=== PATIENT | female | born 1955 | race Caucasian/White ===

== ENCOUNTER 2025-03-14 13:03 | Emergency (ER) | payer MEDICARE, SELFPAY ==
--- NOTE | ~2025-03-14 | CT_ITS ---
EXAMINATION: CT cervical spine wo con DATE: 03/14/2025 14:30 INDICATION: trauma TECHNIQUE: Computed tomography (CT) of the cervical spine was performed without intravenous contrast. Automated exposure control and iterative reconstruction technique were employed. The dose-length pro duct was 231.13 mGy-cm. COMPARISON: None. FINDINGS: Vertebral Body Alignment: Intact. Reversed lordosis centered at C3-4. Craniocervical and atlantoaxial alignment: Moderate degenerative change. Alignment intact. Osseous structures/fracture: No evidence of a lytic or blastic process in the visualized spine. No e vidence of acute fracture. Cervical soft tissues: The paraspinal soft tissues planes are maintained. Biapical pleural scarring w ith calcification on the right. Degenerative changes: Degenerative changes, without severe neural foraminal or central canal narrowin g. IMPRESSION: No acute fracture or traumatic malalignment in the cervical spine. Reviewed, dictated and finalized at location K.
--- NOTE | ~2025-03-14 | CT_ITS ---
EXAMINATION: CT brain wo con DATE: 03/14/2025 14:30 INDICATION: trauma . TECHNIQUE: Computed tomography (CT) of the head was performed without intravenous contrast. The mA wa s adjusted according to patient size. Iterative reconstruction technique was employed. The dose-lengt h product was 605.33 mGy-cm. COMPARISON: None. FINDINGS: No acute intracranial hemorrhage or extra-axial fluid collection. No hydrocephalus, mass, or herniation. No acute ischemic infarct. Unremarkable dural venous sinus attenuation. No acute osseous abnormality. The aerated spaces are clear. Atherosclerotic intracranial calcifications IMPRESSION: No acute intracranial process. Reviewed, dictated and finalized at location K.
[2025-03-14 13:03] VITALS: BP 147/89; PULSE 80; RESP 16; TEMP 36.4; O2SAT 99
--- OUTSIDE RECORDS SUMMARY | 2025-03-14 13:05 | XMS_ITS | Encounter Summary ---
Author Organization [facility] Address [address] [place] [address] Phone Care Team Providers Care Recapper Name Role Phone Radha Clark Primary Care Provider Gold Murphy MD Unavailable Clarence Joseph MD Unavailable [phone] Sunshine Zamora MD Primary Care Provider Luli Correa NP Primary Care Provider [phone] Encounter Details Date Type Department Care Team (Latest Contact Info) Description 04/06/2023 Orders Only [facility] Tete Beyer, RN [address] [facility] [address] [place], [place] [id number] Social History Tobacco Use Types Packs/Day Years Used Date Smoking Tobacco: Never Assessed Comments Unknown Sex and Gender Information Value Date Recorded Sex Assigned at Not on file Legal Sex Female 1:43 AM CURTAIN CUTTER Gender Identity Not on file Sexual Orientation Not on file documented as of this encounter Plan of Treatment Not on file documented as of this encounter Procedures Procedure Name Priority Date/Time Associated Diagnosis Comments PULMONARY - RESULT SCAN 08/18/2023 SCAN - LABS 04/06/2023 documented in this encounter Results * PULMONARY - RESULT SCAN (08/18/2023) Anatomical Region Laterality Modality Other us Provider Scanning Final Result * SCAN - LABS (04/06/2023) us Tete Beyer RN Final Result documented in this encounter Visit Diagnoses Not on filedocumented in this encounter Care Teams Recapper Relationship Specialty [place] [address] [facility] [address] [place] [address] PCP - General Physician Roustabout Supervisor 08/02/23 11/13/23 Sunshine Zamora MD [address] [facility], [address] [address] PCP - General Family Medicine 11/14/23 10/30/24 Luli Correa NP [address] [facility] [address] [place] [address] PCP - General Family Medicine 10/31/24 Gold Murphy MD [address] [facility], [address] [address] Referring Physician Pulmonary Disease 11/14/23 Clarence Joseph MD [address] [facility], [address] [address] Consulting Physician Cardiology 11/14/23 [facility] Gynecology 10/31/24 documented as of this encounter
--- OUTSIDE RECORDS SUMMARY | 2025-03-14 13:05 | XMS_ITS | Continuity of Care Document ---
Author Organization [facility] Address [address] [place] [address] [facility] [address] [place] [address] Phone Care Team Providers Care Racking Machine Operator Name Role Phone Melissa Herman Unavailable Unavailable Advance Directives Directive Yes / No Effective Date File Name No Information Encounters Encounter Description Practice Location Reason(s) For Visit Diagnoses Date Provider Providers Copied on Encounter [facility], [id number] [place] [address] [address], [place], [place], [id number], [place] tel:[phone] [facility] ([facility]) No Information [address] , [address], [place], [address], [place]. tel:[phone] Family History Family Member Type Diagnosis Age At Onset No Information Payers Payer name Insurance type Covered republican ID Authoriza tion(s) No Information Social History Type Description Quantity Date Captured Comments Sex Female Smoking Status No Information Chief Complaint And Reason For Visit No Information Reason For Referral Reason For Referral No Information History Of Present Illness Encounter Date Complaint History Of Prese nt Illness No Information Functional Status Date Functional Assessmen t No Information Instructions Date Instruction Additional Infor mation No Information Assessments Type Assessment Date No Information Patient Care Teams Name Effective Dates (start - stop) Status Members No Information
--- OUTSIDE RECORDS SUMMARY | 2025-03-14 13:05 | XMS_ITS | Clinical Summary ---
Author Organization [facility] Address [facility] [place] [address] Care Team Providers Care Search Engine Optimization Strategist Name Role Phone Radha Clark Primary Care Provider [phone] Allergies No known active allergies Medications aspirin 81 MG chewable tablet Chew 1 tablet (81 mg total) by mouth daily. Active buPROPion XL (WELLBUTRIN XL) 300 MG 24 hr tabletIndication s:Depression, unspecified depression type Take 1 tablet (300 mg total) by mouth daily. Please call for a follow up appointment 90 tablet 4 Active atorvastatin (LIPITOR) 40 MG tabletIndication s:Dyslipidemia take 1 tablet by mouth everyday at bedtime 30 tablet 4 Active Active Problems Problem Noted Date Diagnosed Date Abnormal finding on lung imaging 06/19/2023 Multiple lung nodules 06/19/2023 Pericardial effusion (HHS/HCC) 06/13/2023 PVD (peripheral vascular disease) 06/13/2023 Dyslipidemia 06/13/2023 Immunizations Immunization Administration Dates Next Due Afluria 36 MONTHS+ (Prefille d Syringe IIV4) 2019 Fluzone 6 Months+ Quad (0.5 mL Prefilled Syringe) 05/02/2020 Influenza Adult (Generic) 05/12/2022,,05/02/2020,2018,06/16/2018 AYUSH ([employer]) COVID-19 AD26 VACCINE 0.5 ML IM SUSP 10/22/2020 PFIZER COVID-19 (ORIGINAL FORMULATION, PURPLE CAP) mRNA, LNP-S, PF, 30 MCG/0.3 ML DOSE 06/13/2021 Pneumococcal (Pneumovax 23) 05/12/2022 Shingrix 08/18/2019,2019 Tdap (Generic) 10/09/2019 Tdap (Historical Only-select from magnify glass) 10/09/2019 Family History Medical History Relation Comments Lung Cancer Brother hepatitis Brother Cancer Father Heart Disease Maternal Grandfather Cancer Mother Breast Cancer Neg Hx Relation Status Comments Brother Father Maternal Grandfather Maternal Grandmother Mother Paternal Grandfather Paternal Grandmother Social History Tobacco Use Types Packs/Day Years Used Date Smoking Tobacco: Never Passive Smoke Exposure: Never Smokeless Tobacco: Never Tobacco Cessation:Counseling Given: Not Answered Alcohol Use Standard Drinks/Week Comments Yes 0 (1 standard drink = 0.6 oz pur e alcohol) socially PHQ-2 Answer Date Recorded Patient Health Questionnaire-2 Score 0 04/06/2023 Comments No Sex and Gender Information Value Date Recorded Sex Assigned at Not on file Legal Sex Female 10:13 AM SECOND CRUSHER Gender Identity Not on file Sexual Orientation Not on file Last Filed Vital Signs Vital Sign Reading Time Taken Comments Blood Pressure 128/80 07/20/2023 11:08 AM SECOND CRUSHER Pulse 79 07/20/2023 11:08 AM SECOND CRUSHER Temperature 36.8 C (98.2 F) 06/19/2023 7:46 AM SECOND CRUSHER Respiratory Rate 14 06/19/2023 7:46 AM SECOND CRUSHER Oxygen Saturation 98% 07/20/2023 11:08 AM SECOND CRUSHER Inhaled Oxygen Concentration - - Weight 73 kg (161 lb) 07/20/2023 11:08 AM SECOND CRUSHER Height 165.1 cm (5' 5) 07/20/2023 11:08 AM SECOND CRUSHER Body Mass Index 26.79 07/20/2023 11:08 AM SECOND CRUSHER Plan of Treatment Health Maintenance Due Date Last Done Comments Annual Medicare Wellness Visit 2022 Pneumococcal Vaccine: 50+ Years (2 of 2 - PCV) 05/12/2023 05/12/2022 COVID-19 Vaccine ( season) 2024 07/03/2022, 06/13/2021, 10/22/2020 PHQ-2 (Physician [place]) 08/14/2024 04/06/2023 Mammogram Screening 06/16/2025 06/16/2023, 03/03/2022, 02/24/2021, Additional history exists Colorectal Cancer Screening FIT-DNA (3 Years) 07/14/2025 07/14/2022, 07/14/2022 DTaP, Tdap and Td Vaccines (3 - Td or Tdap) 10/09/2029 10/09/2019, 10/09/2019 RSV Immunization or 60+ Years (1 - 1-dose 75+ series) 2032 Hepatitis C 03/01/2052 Postponed from 1975 (Patient Refused) Zoster Vaccines Completed 08/18/2019, 2019 Dexa Scan (General) Completed 03/03/2022, 0 Meningococcal B Vaccine Aged Out No l onger eligible based on patient's age to complete this topic Meningococcal Vaccine Aged Out No hieu chayo eligible based on patient's age to complete this topic RSV Immunizations Under 20 Months Aged Out No longer eligible based on patient's age to complete this topic Procedures Procedure Name Priority Date/Time Associated Diagnosis Comments MG SCREENING W ASHLEY JACQUELINE DIGI Routine 06/16/2023 3:44 PM CDT Encounter for screening mammogram for malignant neoplasm of breast COLOGUARD (EXACT SCIENCE) Routine 07/14/2022 9:00 AM SECOND CRUSHER Screen for colon cancer BONE DENSITY/DEXA Routine 03/03/2022 12: 35 PM CDT Osteoporosis screening from Last 3 Months or Most Recently Relevant to Health Maintenance Results * MG SCREENING W ASHLEY JACQUELINE DIGI (06/16/2023 3:44 PM CDT) Anatomical Region Laterality Modality Breast Bilateral Mammography 06/16/2023 4:05 PM CDT Narrative 06/16/2023 4:06 PM CDT EXAMINATION: Digital bilateral screening mammogram with 3-D tomosynthesis EXAM DATE/TIME: 06/16/2023 2:57 PM REASON FOR EXAM: breast screen COMPARISON: February 2022, February 2021, September 2019 TECHNIQUE: Digital screening mammography of both breasts was performed in addition to 3-D Tomosynthesis technique. This study was read with the assistance of a computer-aided detection system. TISSUE DENSITY: There are scattered areas of fibroglandular density. FINDINGS: No suspicious masses, malignant appearing calcifications, skin thickening or other abnormalities are present. No significant change from the prior exam. =====IMPRESSION:===== No mammographic findings suggestive of malignancy ASSESSMENT: ACR BI-RADS 2 - BENIGN FINDING(S) Recommendation: 1: Routine Screening Bilateral COMMENTS: Ordered By: RADHA CLARK Interpreted By: John Thompson MD, 06/16/2023 4:[address] MAMMO Final Result * COLOGUARD ([employer] SCIENCE) (07/14/2022 9:00 AM SECOND CRUSHER) COLOGUARD RESULT Negative Negative [employer] (CLIA #:[id number]) Comment: NEGATIVE TEST RESULT. A negative Cologuard result indicates a low likelihood that a colorectal cancer (CRC) or advanced adenoma (adenomatous polyps with more advanced pre-malignant features) is present. The chance that a person with a negative Cologuard test has a colorectal cancer is less than 1 in 1500 (negative predictive value >99.9%) or has an advanced adenoma is less than 5.3% (negative predictive value 94.7%). These data are based on a prospective cross-sectional study of 10,000 individuals at average risk for colorectal cancer who were screened with both Cologuard and colonoscopy. (Rosa Maria Mcconnell al, N Engl J Med 2014;370(14):9349-7548) The normal value (reference range) for this assay is negative. COLOGUARD RE-SCREENING RECOMMENDATION: Periodic colorectal cancer screening is an important part of preventive healthcare for asymptomatic individuals at average risk for colorectal cancer. Following a negative Cologuard result, the [place] Cancer Society and U.S. [facility]-Society Task Force screening guidelines recommend a Cologuard re-screening interval of 3 years. References: [place] Cancer Society Guideline for Colorectal Cancer Screening: https://www.cancer.org/cancer/oydpp-ykeipe-uiyqaj/hoeqkouux-vjrcsvjqa-wpfmmfj/ac s-rec ommendations.html.; Sundeep DK, Maddy CR, Benny ClarkeK, Colorectal Cancer Screening: Recommendations for Physicians and Patients from the U.S. Multi-Society Task Force on Colorectal Cancer Screening , Am J Gastroenterology 2017; 112:1786-9699. TEST DESCRIPTION: Composite algorithmic analysis of stool DNA-biomarkers with hemoglobin immunoassay. Quantitative values of individual biomarkers are not reportable and are not associated with individual biomarker result reference ranges. Cologuard is intended for colorectal cancer screening of adults of either sex, 45 years or older, who are at average-risk for colorectal cancer (CRC). Cologuard has been approved for use by the U.S. FDA. The performance of Cologuard was established in a cross sectional study of average-risk adults aged 50-84. Cologuard performance in patients ages 45 to 49 years was estimated by sub-group analysis of near-age groups. Colonoscopies performed for a positive result may find as the most clinically significant lesion: colorectal cancer [4.0%], advanced adenoma (including sessile serrated polyps greater than or equal to 1cm diameter) [20%] or non- advanced adenoma [31%]; or no colorectal neoplasia [45%]. These estimates are derived from a prospective cross-sectional screening study of 10,000 individuals at average risk for colorectal cancer who were screened with both Cologuard and colonoscopy. (Rosa Maria Mcconnell al, N Engl J Med 2014;370(14):2441-0899.) Cologuard may produce a false negative or false positive result (no colorectal cancer or precancerous polyp present at colonoscopy follow up). A negative Cologuard test result does not guarantee the absence of CRC or advanced adenoma (pre-cancer). The current Cologuard screening interval is every 3 years. ([place] Cancer Society and U.S. Multi-Society Task Force). Cologuard performance data in a 10,000 patient pivotal study using colonoscopy as the reference method can be accessed at the following location: www.[employer]/results. Additional description of the Cologuard test process, warnings and precautions can be found at www.cologCrowdCompassrd.com. STOOL STOOL SPECIMEN / Unknown 07/14/2022 9:00 AM SECOND CRUSHER 07/15/2022 1:03 PM SECOND CRUSHER us Radha CHÁVEZ BODY FLUIDS AND STOOLS ORDER CHRIS Final Result [facility] ([employer] [address]) [address] [place] [place] [address], [employer] (CLIA #:[id number]) [address] [place] [address] [place] [place] [address] * BONE DENSITY/DEXA (03/03/2022 12:35 PM CDT) Anatomical Region Laterality Modality Bone Bone Density 03/03/2022 1:14 PM CDT Narrative 03/03/2022 1:16 PM CDT IMAGING STUDIES: BONE DENSITY/DEXA DATE: 03/03/2022 12:23 PM CLINICAL HISTORY: Postmenopausal. No calcium replacement therapy. 66-year-old female with menopause at age 50. FINDINGS: LUMBAR SPINE L2-L4: BMD: 0.989 g/sq cm T-SCORE: -0.8 WHO CLASSIFICATION: Normal young adult range FRACTURE RISK: Very low LEFT FEMORAL NECK: BMD: 0.690 T-SCORE: -1.4 WHO CLASSIFICATION: Mild osteopenia FRACTURE RISK: Very low COMPARISON STUDY: 10/09/2019. LUMBAR SPINE L2-L4: BMD: 0.928 T-SCORE: -1.4 WHO CLASSIFICATION: Mild osteopenia FRACTURE RISK: Low LEFT FEMORAL NECK: BMD: 0.710 T-SCORE: -1.3 WHO CLASSIFICATION: Mild osteopenia FRACTURE RISK: Very low Recommendation. Instigation of calcium replacement therapy with repeat imaging in 2 years Ordered By: RADHA CLARK Interpreted By: Kev Leonard, 03/03/2022 1:14 PM Procedure Note Gorge Leonard MD - 07/21/2022 IMAGING STUDIES: BONE DENSITY/DEXA DATE: 03/03/2022 12:23 PM CLINICAL HISTORY: Postmenopausal. No calcium replacement therapy.66-year-old female with menopause at age 50. FINDINGS: LUMBAR SPINE L2-L4: BMD: 0.989 g/sq cm T-SCORE: -0.8 WHO CLASSIFICATION: Normal young adult range FRACTURE RISK: Very low LEFT FEMORAL NECK: BMD: 0.690 T-SCORE: -1.4 WHO CLASSIFICATION: Mild osteopenia FRACTURE RISK: Very low COMPARISON STUDY: 10/09/2019. LUMBAR SPINE L2-L4: BMD: 0.928 T-SCORE: -1.4 WHO CLASSIFICATION: Mild osteopenia FRACTURE RISK: Low LEFT FEMORAL NECK: BMD: 0.710 T-SCORE: -1.3 WHO CLASSIFICATION: Mild osteopenia FRACTURE RISK: Very low Recommendation. Instigation of calcium replacement therapy with repeatimaging in 2 years Ordered By: RADHA CLARK Interpreted By: Kev Leonard, 03/03/2022 1:14 PM Radha CHÁVEZ DEXA Final Result from Last 3 Months or Most Recently Relevant to Health Maintenance Insurance MEDICARE [facility] Care Teams Search Engine Optimization Strategist Relationship Specialty [place] [address] [place] [address] PCP - General PHYSICIAN ALUMINUM BOATS ASSEMBLER 10/02/19
--- OUTSIDE RECORDS SUMMARY | 2025-03-14 13:05 | XMS_ITS | Encounter Summary ---
Author Organization [facility] Address [address] [place] [address] Care Team Providers Care Highway Painter Name Role Phone Radha Clark Primary Care Provider [phone] Encounter Details Date Type Department Care Team (Late st Contact Info) Description 10/09/2019 Textura Message [facility] Family & Internal Medicine [facility] [address] [place] [address] [email or web address], [facility] Provider Bone Density Results Social History Tobacco Use Types Packs/Day Years Used Date Smoking Tobacco: Never Smokeless Tobacco: Never Alcohol Use Standard Drinks/Week Comments Yes 0 (1 standard drink = 0.6 oz pur e alcohol) socially PHQ-2 Answer Date Recorded PHQ-2 Score 0 10/02/2019 Comments No Sex and Gender Information Value Date Recorded Sex Assigned at Not on file Legal Sex Female 10:13 AM LEAD INGOT MOLDER Gender Identity Not on file Sexual Orientation Not on file documented as of this encounter Plan of Treatment Not on file documented as of this encounter Visit Diagnoses Not on filedocumented in this encounter Care Teams Highway Painter Relationship Specialty [place] [address] [place] [address] PCP - General PHYSICIAN BEFORE AND AFTER SCHOOL DAYCARE WORKER 10/02/19 documented as of this encounter
--- OUTSIDE RECORDS SUMMARY | 2025-03-14 13:05 | XMS_ITS | Clinical Summary ---
Author Organization [facility] Address [address] [facility] [place] [address] Care Team Providers Care Hoop Rolls Operator Name Role Phone Unavailable Primary Care Provider Unavailabl e Source Comments [facility],non-owned Affiliates and Associated Physician Practices is amultiple site organization consisting of ambulatory clinics and hospital sitesin [place], [place], [place] and [place]. This disclosure is being madepursuant to the Care Everywhere program and may not contain all information available regarding this patient. Last updated 18.[facility] Allergies No known active allergies Medications * Be aware that medications may not be up to date on this document. Alwaysverify current medications with the patient. buPROPion XL 24hr (WELLBUTRIN-XL) 300 MG tablet Take 1 tablet by mouth once daily 06/15/2021 Active Multiple Vitamins-Mineral s (ZINC PO) Take 1 tablet by mouth once daily Active Cyanocobalamin (B-12 PO) Take 1 tablet by mouth once daily Active Cholecalciferol (VITAMIN D-3 PO) Take 1 tablet by mouth once daily Active Active Problems No known active problems Family History Medical History Relation Name Comments Asthma Neg Hx CVA Neg Hx Cancer - Breast Neg Hx Cancer - Other Neg Hx Cancer - Skin, Melanoma Neg Hx Cancer - Skin, Non Melanoma Neg Hx Eczema Neg Hx Hemophilia Neg Hx Psoriasis Neg Hx Social History Tobacco Use Types Packs/Day Years Used Date Smoking Tobacco: Never Smokeless Tobacco: Never Alcohol Use Standard Drinks/Week Comments Yes 0 (1 standard drink = 0.6 oz pur e alcohol) Comments Unknown Sex and Gender Information Value Date Recorded Sex Assigned at Not on file Legal Sex Female 9:56 AM ARCHITECTURAL DESIGN PROFESSOR Gender Identity Not on file Sexual Orientation Not on file Last Filed Vital Signs Vital Sign Reading Time Taken Comments Blood Pressure 160/100 08/03/2021 11:44 AM ARCHITECTURAL DESIGN PROFESSOR Pulse 72 08/03/2021 11:44 AM ARCHITECTURAL DESIGN PROFESSOR Temperature - - Respiratory Rate - - Oxygen Saturation - - Inhaled Oxygen Concentration - - Weight 74.8 kg (165 lb) 08/03/2021 7:39 AM ARCHITECTURAL DESIGN PROFESSOR Height 161.3 cm (5' 3.5) 08/03/2021 7:39 AM ARCHITECTURAL DESIGN PROFESSOR Body Mass Index 28.77 08/03/2021 7:39 AM ARCHITECTURAL DESIGN PROFESSOR Plan of Treatment Health Maintenance Due Date Last Done Comments BONE DENSITY TESTING 1957 COLOGUARD (AGES 45-75) - COLON CA SCREENING 1957 COLON MONITORING 1957 COLONOSCOPY - COLON CA SCREENING 1957 CT COLONOGRAPHY - COLON CA SCREENING 1957 Colorectal Cancer Screening 1957 FIT - COLON CA SCREENING 1957 FLEX SIG - COLON CA SCREENING 1957 LIPID TESTING 1957 MAMMOGRAM 1957 HEPATITIS C SCREENING 04/21/1975 DTAP/TDAP/TD VACCINES (1 - Tdap) 1976 PNEUMOCOCCAL VACCINE 50+ (1 of 1 - PCV) 2007 ZOSTER VACCINE (1 of 2) 2007 COVID-19 VACCINE (2 - season) 2024 10/22/2020 DEPRESSION SCREENING 08/14/2024 INFLUENZA VACCINE (#1) 2025 , 05/02/2020, 2019, Additional history exists Respiratory Syncytial Virus (RSV) Vaccine Pt: or over 60 yrs (1 - 1-dose 75+ series) 2032 HEPATITIS B VACCINE Aged Out No longe r eligible based on patient's age to complete this topic HIB VACCINE Aged Out No longer eligi ble based on patient's age to complete this topic HPV VACCINE Aged Out No longer eligi ble based on patient's age to complete this topic MENINGOCOCCAL (Group B) VACCINE SHARED DECISION-MAKING Aged Out No longer eligible based on patient's age to complete this topic MENINGOCOCCAL GROUPS A/C/Y/W VACCINE Aged Out No longer eligible based on patient's age to complete this topic Insurance [employer]
--- OUTSIDE RECORDS SUMMARY | 2025-03-14 13:05 | XMS_ITS | Encounter Summary ---
Author Organization [facility] Address [address] [place] [address] Care Team Providers Care Wagon Winder Name Role Phone Radha Clark Primary Care Provider [phone] Encounter Details Date Type Department Care Team (Late st Contact Info) Description 05/31/2023 Synter[employer] Message [facility] Family & Internal Medicine [facility] [address] [place] [address] [facility] Provider Referral Department number Social History Tobacco Use Types Packs/Day Years Used Date Smoking Tobacco: Never Passive Smoke Exposure: Never Smokeless Tobacco: Never Alcohol Use Standard Drinks/Week Comments Yes 0 (1 standard drink = 0.6 oz pur e alcohol) socially PHQ-2 Answer Date Recorded Patient Health Questionnaire-2 Score 0 04/06/2023 Comments No Sex and Gender Information Value Date Recorded Sex Assigned at Not on file Legal Sex Female 10:13 AM NUCLEAR MONITORING TECHNICIAN Gender Identity Not on file Sexual Orientation Not on file documented as of this encounter Plan of Treatment Not on file documented as of this encounter Visit Diagnoses Not on filedocumented in this encounter Additional Health Concerns Assessment Noted Time PHQ-9 Depression Total Score: 0 02/02/20 21 1:54 PM CDT documented as of this encounter Care Teams Wagon Winder Relationship Specialty [place] [address] [place] [address] PCP - General PHYSICIAN COMBINE DRIVER 10/02/19 documented as of this encounter
--- OUTSIDE RECORDS SUMMARY | 2025-03-14 13:05 | XMS_ITS | Encounter Summary ---
Author Organization [facility] Healthcare Address [address] [place] [address] Care Team Providers Care Siebel Architect Name Role Phone Gold Murphy MD Unavailable [phone] Clarence Joseph MD Unavailable Luli Correa NP Primary Care Provider [phone] Reason for Visit * Reason Comments Fall Patient here for c/o fall last . States she has bruise on chest, has had persistent headache but denies hitting head. Encounter Details Date Type Department Care Team (Late st Contact Info) Description 03/14/2025 12:45 PM CDT Office Visit [facility] Medical Group Convenient Care at [address] [address] Eileen Moreno NP [address] [place] [address] [address] [place] [address] Fall, initial encounter (Primary Dx); Pressure in head; Nonintractable headache, unspecified chronicity pattern, unspecified headache type Social History Tobacco Use Types Packs/Day Years Used Date Smoking Tobacco: Never Passive Smoke Exposure: Never Smokeless Tobacco: Never AUDIT-C Answer Date Recorded Q1: How often do you have a drink containing alcohol? 2-3 times a week 07/15/2024 Q2: How many drinks containi ng alcohol do you have on a typical day when you are drinking? Patient does not drink Q3: How often do you have si x or more drinks on one occasion? Never 07/15/2024 PHQ-2 Answer Date Recorded PHQ-2 Total Score (If total score is 3 or more points, staff should administer the PHQ-9) 0 10/31/2024 Personal Safety Answer Date Recorded Have you ever been in or are you currently in a harmful physical or emotional relationship or is someone making you feel afraid or unsafe? 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 Gender Identity Not on file Sexual Orientation Not on file documented as of this encounter Last Filed Vital Signs Vital Sign Reading Time Taken Comments Blood Pressure 142/90 03/14/2025 11:47 AM CDT Pulse 66 03/14/2025 11:47 AM CDT Temperature 36.1 C (96.9 F) 03/14/2025 11:47 AM CDT Respiratory Rate 16 03/14/2025 11:47 AM CDT Oxygen Saturation 97% 03/14/2025 11:47 AM CDT Inhaled Oxygen Concentration - - Weight 70.3 kg (155 lb) 03/14/2025 11:47 AM CDT Height 165.1 cm (5' 5) 03/14/2025 11:47 AM CDT Body Mass Index 25.79 03/14/2025 11:47 AM CDT documented in this encounter Plan of Treatment Not on file documented as of this encounter Visit Diagnoses Diagnosis Fall, initial encounter- Primary Nonintractable headache, unspecified chronicity pattern, unspecified headache type documented in this encounter Care Teams Siebel Architect Relationship Specialty Start Date End Date Luli Correa NP [address] [facility] [address] [place] [address] PCP - General Family Medicine 10/31/24 Gold Murphy MD [address] [facility], [address] [place] [address] Referring Physician Pulmonary Disease 11/14/23 Clarence Joseph MD [address] [facility], [address] [place] [address] Consulting Physician Cardiology 11/14/23 [facility] Gynecology 10/31/24 documented as of this encounter
--- OUTSIDE RECORDS SUMMARY | 2025-03-14 13:05 | XMS_ITS | Clinical Summary ---
Author Organization [facility] Address [address] [place] [address] Care Team Providers Care Serging Machine Operator Automatic Name Role Phone Gold Murphy MD Unavailable [phone] Clarence Joseph MD Unavailable [phone] Luli Correa NP Primary Care Provider [phone] Allergies No known active allergies Medications amLODIPine (NORVASC) 5 mg tablet Take 1 tablet (5 mg total) by mouth daily 90 tablet 3 03/26/2024 5 Active atorvastatin (LIPITOR) 40 mg tablet Take 1 tablet (40 mg total) by mouth daily 90 tablet 3 05/27/2024 5 Active buPROPion XL (WELLBUTRIN XL) 300 mg 24 hr tablet Take 1 tablet (300 mg total) by mouth daily 90 tablet 1 08/21/2024 Active SEMAGLUTIDE SUBQ Inject under the skin Active coenzyme Q10 100 mg capsule Take 1 capsule (100 mg total) by mouth daily Active Active Problems Problem Noted Date Diagnosed Date Screen for colon cancer 03/01/2024 FHx: colon cancer 03/01/2024 Atherosclerosis of aorta 11/14/2023 Assessment & Plan (10/31/2024 9:02 AM CDT): Continues Atorvastatin. Pt follows with Cardiology. Assessment & Plan (11/14/2023 6:21 PM CDT): Chronic. Noted on CT chest last year. She is atherosclerosis in both the thoracic and abdominal aorta. Presence of atherosclerosis in the aorta indicates increased risk for cerebrovascular disease as well as peripheral arterial disease. Despite patient have a negative coronary artery calcium score she is still at increased risk of cardiovascular events due to cholesterol pack. Target LDL goal less than 70. Jatinder's high-intensity statin. Continue atorvastatin 40 mg daily Family history of rectal cancer 11/14/2023 Assessment & Plan (10/31/2024 9:03 AM CDT): Pt needs Colonoscopy repeated in 3 months d/t poor bowel prep. Bronchitis 11/14/2023 Assessment & Plan (11/14/2023 6:23 PM CDT): Patient has signs of acute viral bronchitis. Her symptoms been going on for about 2 weeks but seem to be improving last day or 2. Discussed that most bronchitis is viral and so antibiotics are typically not warranted. Given symptoms are starting to improve and lungs are clear on exam we will defer chest x-ray today. If symptoms worsen or develops increased productivity of sputum or hemoptysis and would have low threshold to obtain additional chest imaging especially in setting of her previous borderline lung lesion. Patient was advised of supportive care with [id number] cough and cold medications. We have advised use of [id number]-[id number] Tylenol for pain/fever. If respiratory symptoms are not improving over the next 1-2 weeks then she will let me know. If she does develop 2nd and worsening then evaluation for bacterial pneumonia would also be indicated MARISELA (generalized anxiety disorder) 11/14/2023 Assessment & Plan (10/31/2024 9:03 AM CDT): Stable on Wellbutrin. Assessment & Plan (11/14/2023 6:23 PM CDT): Patient has a history of mild anxiety. She has been well-controlled on bupropion. Brief supportive counseling was provided in office today. She wishes to continue medication at current dose. In the future we may be able to wean down to 150 mg daily. Monitor Encounter for Medicare annual wellness exam 10/12 Assessment & Plan (10/31/2024 8:41 AM CDT): A yearly Medicare Annual Wellness Visit has been performed today. Becky Cruz is up to date on screening tests. She is in need of None- no screening indicated at this time- these have been ordered. She is not up to date on needed preventative vaccinations; She is in need of Influenza, Pneumonia (Prevnar-13 or Pneumovax- 23), and Covid-19 (booster). These have been ordered/arranged unless otherwise indicated. Lung mass 09/05/2023 Assessment & Plan (11/14/2023 6:21 PM CDT): Patient has 1 larger lung mass/nodule in the right upper lobe. This is being monitored. We will need to monitor for improvement in current respiratory symptoms. If respiratory symptoms are not improving may need additional imaging sooner than the six-month recommended on last CT Multiple lung nodules 06/19/2023 Assessment & Plan (10/31/2024 9:03 AM CDT): Following with Pulmonology. Assessment & Plan (11/14/2023 6:20 PM CDT): Chronic. Following with pulmonology. She is multiple small stable nodules that are not concerning. She has had 1 larger nodule that needs short-term follow-up. She has not had any chronic respiratory symptoms though has some mild respiratory symptoms for the last 2 weeks at seem to be starting to improve. We will need to monitor these respiratory symptoms. CT 1 month ago was not concerning for any progression in the lesions. If the respiratory symptoms currently continue to worsen then we may need to get updated imaging to further evaluate Pericardial effusion 06/13/2023 Assessment & Plan (11/14/2023 6:19 PM CDT): Noted last year. Asymptomatic. Continue monitoring with Cardiology. Discussed signs and symptoms to seek urgent evaluation. No signs of decompensation or worsening cardiac issues Dyslipidemia 06/13/2023 Assessment & Plan (10/31/2024 9:02 AM CDT): Continues Atorvastatin, no side effects reported. Updated labs ordered. Assessment & Plan (11/14/2023 6:20 PM CDT): Chronic. Patient has atherosclerosis of the aorta noted on prior CT chest. Discussed that this increases her risk of having significant cardiovascular events in her heart as well as cerebrovascular and peripheral vascular. Given this her LDL goal is now less than 70. She is tolerating the atorvastatin. Discussed risks and benefits and guidelines regards to treatment of cholesterol related disease. Patient is encouraged to continue on atorvastatin 40 mg daily. Abnormal finding on evaluation procedure 017 Overview (03/14/2025): Oth abn and inconclusive findings on dx imaging of breast;Recorded Elsewhere: No Location: [facility] Source: EHR Chronic: N Practice ID: [id number] Billable Time: 10:40:20 AM Atypical squamous cells of u ndetermined significance (ASCUS) on Papanicolaou smear of cervix 01/15/2015 Overview (03/14/2025): Pap Abnormal ASCUS;Practice ID: 0001 Abdominal pain 01/15/2015 Overview (03/14/2025): Abdominal pain, other specified site;Practice ID: 0001 Dysuria 01/15/2015 Overview (03/14/2025): Dysuria;Practice ID: 0001 Urinary tract infectious disease 01/15/2015 Overview (03/14/2025): Urinary tract infection, site not specified;Practice ID: 0001 Benign essential hypertension 07/16/2014 Overview (03/14/2025): Benign essential hypertension;Practice ID: 0001 Microscopic hematuria 07/16/2014 Overview (03/14/2025): HEMATURIA MICROSCOPIC;Practice ID: 0001 Resolved Problems Problem Noted Date Diagnosed Date Resolved Date Abnormal finding on lung imaging 06/19/2023 11/14/2023 PVD (peripheral vascular disease) 06/13/2023 11/14/2023 Encounters Date Type Department Care Team Description 03/14/2025 12:45 PM CDT Office Visit [facility] Medical Group Convenient Care at [address] [address] Eileen Moreno NP Fall, initial encounter (Primary Dx); Pressure in head; Nonintractable headache, unspecified chronicity pattern, unspecified headache type 03/14/2025 Nurse Triage [facility] Medical Group Primary Care at [address] [address] Luli Correa NP from Last 3 Months Immunizations Immunization Administration Dates Next Due Influenza, Quadrivalent, Spl it, Preservative Free, Intramuscular 05/11/2022,05/03/2021,05/02/2020,04/25,06/16/2018 Influenza, Unspecified 05/12/2022,2020,05/02/2020,04/25,06/16/2018 Pneumococcal Polysaccharide PPV23 05/11/2022 Tdap 10/09/2019 ZOSTER Recombinant 08/18/2019,2019 Surgical History Surgery Date Site/Laterality Comments LASIK 2010 COSMETIC SURGERY eye lid lift COLONOSCOPY VAGINAL DELIVERY x3 Medical History Medical History Date Comments Anxiety Pericardial effusion High cholesterol Lung nodule 05/2023 Atherosclerosis of aorta Hypertension Family History Medical History Relation Name Comments Bladder Cancer Father Marcio Armenta Hyperlipidemia Mother Effie Armenta Rectal cancer Mother Effie Armenta in her 80s Breast cancer Neg Hx Relation Name Status Comments Father Marcio Armenta Mother Effie Armenta Social History Tobacco Use Types Packs/Day Years Used Date Smoking Tobacco: Never Passive Smoke Exposure: Never Smokeless Tobacco: Never Tobacco Cessation:Counseling Given: Not Answered AUDIT-C Answer Date Recorded Q1: How often [...] on file 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 Gender Identity Not on file Sexual Orientation Not on file Obstetrics History Last Filed Vital Signs Vital Sign Reading [...] Mass Index 25.79 03/14/2025 11:47 AM CDT Plan of Treatment Health Maintenance Due Date Last Done Comments Hepatitis B Screening 1975 Pneumococcal vaccine 65+ (2 of 2 - PCV) 05/11/2023 05/11/2022 Osteoporosis Screening-Bone Density Scan 03/03/2024 03/03/2022, 03/03/2022 Covid-19 Vaccine (2023-2 5 season) 2024 07/03/2022, 06/13/2021, 10/22/2020 Breast Cancer Screening-Mammogram 06/16/2024 06/16/2023, 06/16/2023, 06/16/2023, Additional history exists Influenza Vaccine (#1) 2025 2, 05/11/2022, 05/03/2021, Additional history exists Depression Screening 10/31/2025 10/31/2024, 11/14/19 24 Fall Risk Assessment 10/31/2025 10/31/2024, 07/15/2024, 11/14/2023 Well Visit 65+ 10/31/2025 10/31/2024 DTaP/Tdap/Td Vaccine (2 - Td or Tdap) 10/09/2029 10/09/2019 Colon Cancer Screening-Colonoscopy 07/15/20342023 Zoster Vaccine Completed 08/18/2019, 2019 Hepatitis C Screening Completed 10/31/2024 Procedures Procedure Name Priority Date/Time Associated Diagnosis Comments HEPATITIS C ANTIBODY Routine 10/31/2024 9:04 AM CDT Encounter for hepatitis C screening test for low risk patient COLONOSCOPY 07/15/2024 8:14 AM PLANNING DIRECTOR HM MAMMOGRAPHY Routine 06/16/2023 3:42 PM CDT HM DEXA SCAN Routine 03/03/2022 3:44 PM CDT from Last 3 Months or Most Recently Relevant to Health Maintenance Results * Hepatitis C antibody Blood (10/31/2024 9:04 AM CDT) Hep C Ab Nonreactive Nonreactive Comment: Interpretive Data Nonreactive: Antibodies to HCV not detected. Does NOT exclude the possibility of recent exposure to HCV. Equivocal: Equivocal for HCV antibodies. Supplemental molecular testing will be automatically performed to determine infection status in accordance with current CDC screening recommendations. Reactive: Positive for HCV antibodies. This may represent current or past HCV infection. Supplemental molecular testing will be automatically performed to determine current infection status in accordance with current CDC screening recommendations. Interpretive data was last revised on 2019. Blood 10/31/2024 9:04 AM CDT 10/31/2024 3:48 PM CDT us Luli Correa NP LAB MICROBIOLOGY - GENERAL ORDER CHRIS Final Result [facility] [address] [facility] Department [place] [address] * Colonoscopy (07/15/2024 8:14 AM PLANNING DIRECTOR) Anatomical Region Laterality Modality Other Narrative Procedure Note Timothy Cai MD - 07/15/2024 8:14 AM CST [facility] GI ENDOSCOPY Patient Name: Becky Cruz Procedure Date: 07/15/2024 8:14 AM Date of : 1955 Admit Type: Outpatient Age: 69 Gender: Female Attending MD: Timothy Cai M.D. Room: [facility] ENDOSCOPY ROOM 06 Note Status: Finalized Procedure: Colonoscopy Indications: Screening for colorectal malignant neoplasm, Family history of colon cancer Referring MD: Providers: Timothy Cai M.D. Medicines: Monitored Anesthesia Care Complications: No immediate complications. Estimated Blood Loss: Estimated blood loss: none. Procedure: Pre-Anesthesia Assessment: - Prior to the procedure, a History and Physicalwas performed, and patient medications and allergieswere reviewed. The risks and benefits of the procedureand the sedation options and risks were discussed withthe patient. All questions were answered and informed consent was obtained. Patient identification and proposed procedure were verified. After reviewingthe risks and benefits, the patient was deemed in satisfactory condition to undergo the procedure.The anesthesia plan was to use monitored anesthesiacare (MAC). Immediately prior to administration of medications, the patient was re-assessed foradequacy to receive sedatives. The heart rate, respiratory rate, oxygen saturations, blood pressure, adequacyof pulmonary ventilation, and response to care were monitored throughout the procedure. The physical status of the patient was re-assessed after the procedure. The benefits, risks and alternatives of theprocedure and sedation were discussed and informed consentwas obtained. All questions were answered. Please referto the signed informed consent document in the medical record. The scope was passed under direct vision.The [id number]-JA097E colonoscope was introduced through theanus and advanced to the cecum, identified byappendiceal orifice and ileocecal valve. The colonoscopy was performed without difficulty. The patient tolerated the procedure well. The quality of the bowel preparation was inadequate. Scope withdrawal timewas 8 minutes. Prep was administered in a split dose. Findings: The perianal and digital rectal examinations were normal. Non-bleeding internal hemorrhoids were found during retroflexion. The hemorrhoids were small. A moderate amount of stool was found in the entire colon, interfering with visualization. Impression: - Preparation of the colon was inadequate. - Non-bleeding internal hemorrhoids. - Stool in the entire examined colon. - No specimens collected. Recommendation: - Patient has a contact number available for emergencies. The signs and symptoms of potential delayed complications were discussed with thepatient. Return to normal activities tomorrow. Written discharge instructions were provided to thepatient. - High fiber diet. - Continue present medications. - Repeat colonoscopy at next available appointment (within 3 months) because the bowel preparation was poor. Timothy Cai M.D. Timothy Cai M.D. 07/15/2024 8:41:09 AM . Number of Addenda: 0 Note Initiated On: 07/15/2024 8:14 AM Recognized by the [employer] for promoting quality in endoscopy Timothy Cai MD ENDOSCOPY PROCEDURES Final Resul t * HM MAMMOGRAPHY (06/16/2023 3:42 PM CDT) Historical Provider HEALTH MAINTENANCE Final Result * DEXA SCAN (03/03/2022 3:44 PM CDT) Historical Provider HEALTH MAINTENANCE Final Result from Last 3 Months or Most Recently Relevant to Health Maintenance [place] [address] MEDICARE [place] Member Subscriber Plan / Payer (Ef fective 2022-Present) Name:Becky Cruz Relation to Subscriber:Self Name:Becky Cruz Payer ID:[id number] Group ID:Not on file Type:icomply Address: [address] [facility] [place] [address] MEDICARE [place] Member Subscriber Plan / Payer (Ef fective 2022-Present) Name:Becky Cruz Relation to Subscriber:Self Name:Becky Cruz Payer ID:[id number] Group ID:Not on file Type:COMMERCIAL Address: [address] [facility] [place] [facility] [place] [address] Care Teams Serging Machine Operator Automatic Relationship Specialty Start Date End Date Luli Correa NP [address] [facility] [address] [place] [address] PCP - General Family Medicine 10/31/24 Gold Murphy MD [address] [facility] [address] DIV IM PULMONARY AND CCM, [address] [address] Referring Physician Pulmonary Disease 11/14/23 Clarence Joseph MD [address] [facility] [address] DIV IM PULMONARY AND CCM, [address] [address] Consulting Physician Cardiology 11/14/23 [facility] Gynecology 10/31/24
--- OUTSIDE RECORDS SUMMARY | 2025-03-14 13:05 | XMS_ITS | Encounter Summary ---
Author Organization [facility] Healthcare Address [address] [place] [address] Care Team Providers Care Mobile Designer Name Role Phone Gold Murphy MD Unavailable [phone] Clarence Joseph MD Unavailable [phone] Luli Correa NP Primary Care Provider [phone] Reason for Visit * Reason Onset Date Comments Headache 03/14/2025 Encounter Details Date Type Department Care Team (Late st Contact Info) Description 03/14/2025 Nurse Triage [facility] Medical Group Primary Care at [address] [address] Luli Correa NP [address] [place] [address] Social History Tobacco Use Types Packs/Day Years [...] on file 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 Some abrasions and felt a little rattled. Pt did not hit her head. Did not injure neck, no pain. Unsure if she pulled something catching herself. Headache is pretty constant. Pain today 01/21. Has been taking ibuprofen and it does help a little. No fever, stiff neck, eye pain, weakness or numbness. Advised she be evaluated. No office appts available. Advised CC or UC visit. Pt states she lives close to the in [place] and will do a walk in today. No appts available to schedule until this evening. Home care reviewed. Advised pt to call back if symptoms worsen or with any other concerns/questions. Pt verbalized understanding. Disposition See Today in Office Reason for Disposition Patient wants to be seen Protocols Used [id number] * Telephone Encounter - Candice Castle RN - 03/14/2025 10:57 AM CDT Regarding: headache ----- Message from Jennifer Barnes sent at 03/14/2025 9:17 AM CDT ----- Symptom Based Call Chief Complaint(s): headache Duration: week ago What type of symptom(s) is the patient experiencing? Non-Emergent. Is this a new or reoccurring symptom(s)? New What have you tried to help your symptom(s)? Nothing Why was appointment not scheduled? Appointment availability did not meet the patient's need. Additional Comments: Patient said she tripped over her dog last off her raised patio. She said she did not hurt anything nor did she hit her head however, she has had a headache since then. She is somewhat concerned that maybe she pulled something or caused something. Please advise and thank you so much. Does message need to be routed? Yes-Action Needed documented in this encounter Plan of Treatment Not on file documented as of this encounter Visit Diagnoses Not on filedocumented in this encounter Care Teams Mobile Designer Relationship Specialty Start Date End Date Luli Correa NP [address] [place] [address] PCP - General Family Medicine 10/31/24 Gold Murphy MD [address] [facility] [address] DIV IM PULMONARY AND CCM, [address] [place] [address] Referring Physician Pulmonary Disease 11/14/23 Clarence Joseph MD [address] [facility] [address] DIV IM PULMONARY AND CCM, [address] [address] Consulting Physician Cardiology 11/14/23 [facility] [place] Gynecology 10/31/24 documented as of this encounter
--- OUTSIDE RECORDS SUMMARY | 2025-03-14 13:05 | XMS_ITS | Referral Summary ---
Author Organization [facility] Address [address] [place] [address] Care Team Providers Care Sausage Meat Trimmer Name Role Phone Gold Murphy MD Unavailable Clarence Joseph MD Unavailable [phone] Luli Correa NP Primary Care Provider [phone] Encounters Date Type Department Care Team Description 03/14/2025 12:45 PM CDT Office Visit [facility] at [address] [address] Eileen Moreno NP Fall, initial encounter (Primary Dx); Pressure in head; Nonintractable headache, unspecified chronicity pattern, unspecified headache type 03/14/2025 Nurse Triage [facility] Primary Care at [address] [address] Luli Correa NP from Last 3 Months Allergies No known active allergies Medications amLODIPine [...] Patient was advised of supportive care with tgpc-lit-awcpzzn cough and cold medications. We have advised use of hhja-wax-jjyauye Tylenol for pain/fever. If respiratory symptoms are [...] dx imaging of breast;Recorded Elsewhere: No Location: [facility] Source: EHR Chronic: N Practice ID: [id number] [...] 11/14/2023 PVD (peripheral vascular disease) 06/13/2023 11/14/2023 Immunizations Immunization Administration Dates Next Due Influenza, Quadrivalent, Spl it, Preservative Free, Intramuscular 05/11/2022,05/03/2021,05/02/2020,04/25,06/16/2018 Influenza, Unspecified 05/12/2022,2020,05/02/2020,04/25,06/16/2018 Pneumococcal Polysaccharide PPV23 05/11/2022 Tdap 10/09/2019 ZOSTER Recombinant 08/18/2019,2019 Social History Tobacco Use Types Packs/Day Years [...] on file Legal Sex Female 1:43 AM MINING MANAGER Gender Identity Not on file Sexual Orientation [...] 03/14/2025 11:47 AM CDT Plan of Treatment Not on file Procedures Procedure Name Priority Date/Time Associated Diagnosis Comments HEPATITIS C ANTIBODY Routine 10/31/2024 9:04 AM CDT Encounter for hepatitis C screening test for low risk patient COLONOSCOPY 07/15/2024 8:14 AM MINING MANAGER HM MAMMOGRAPHY Routine 06/16/2023 3:42 PM CDT [...] MICROBIOLOGY - GENERAL ORDER CHRIS Final Result [facility] JEB [id number] [address] Department [place] [address] * Colonoscopy (07/15/2024 8:14 AM MINING MANAGER) Anatomical Region Laterality Modality Other Narrative Procedure Note Timothy Cai MD - 07/15/2024 8:14 AM CST [facility] GI ENDOSCOPY Patient Name: Becky Cruz Procedure Date: 07/15/2024 8:14 AM Date of : 1955 Admit Type: Outpatient Age: 69 Gender: Female Attending MD: Timothy Cai M.D. Room: [facility] ENDOSCOPY ROOM 06 Note Status: Finalized Procedure: [...] The scope was passed under direct vision.The [id number]-[id number] colonoscope was introduced through theanus and advanced [...] On: 07/15/2024 8:14 AM Recognized by the [place] [employer] Gastrointestinal Endoscopy for promoting quality in endoscopy Timothy Cai MD ENDOSCOPY PROCEDURES Final Resul t * HM MAMMOGRAPHY (06/16/2023 3:42 PM CDT) Historical Provider HEALTH MAINTENANCE Final Result * DEXA SCAN (03/03/2022 3:44 PM CDT) us Historical Provider HEALTH MAINTENANCE Final Result from Last 3 Months or Most Recently Relevant to Health Maintenance Insurance MEDICARE [facility] MEDICARE [facility] Care Teams Sausage Meat Trimmer Relationship Specialty Start Date End Date Luli Correa NP [address] [facility] [address] [place] [address] PCP - General Family Medicine 10/31/24 Gold Murphy MD [address] DIV IM PULMONARY AND CCM, [address] [address] Referring Physician Pulmonary Disease 11/14/23 Clarence Joseph MD [address] DIV IM PULMONARY AND CCM, [address] [address] Consulting Physician Cardiology 11/14/23 [facility] Gynecology 10/31/24
--- OUTSIDE RECORDS SUMMARY | 2025-03-14 13:05 | XMS_ITS | Encounter Summary ---
Author Organization [facility] Address [address] [place] [address] Care Team Providers Care Cathode Washer Name Role Phone Gold Murphy MD Unavailable [phone] Clarence Joseph MD Unavailable [phone] Sunshine Zamora MD Primary Care Provider Luli Correa NP Primary Care Provider Encounter Details Date Type Department Care Team (Late st Contact Info) Description 05/27/2024 Telephone [facility] Primary Care at [address] [address] Sunshine Zamora MD [address] [place] [address] Social History Tobacco Use Types Packs/Day Years Used Date Smoking Tobacco: Never Smokeless Tobacco: Never PHQ-2 Answer Date Recorded PHQ-2 Total Score (If total score is 3 or more points, staff should administer the PHQ-9) 0 11/14/2023 Comments No Sex and Gender Information Value Date Recorded Sex Assigned at Not on file 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 Gender Identity Not on file Sexual Orientation Not on file documented as of this encounter Plan of Treatment Not on file documented as of this encounter Visit Diagnoses Not on filedocumented in this encounter Care Teams Cathode Washer Relationship Specialty Start Date End Date Sunshine Zamora MD [address] [facility] [address] DIV IM PULMONARY AND CCM, [address] [place] [address] PCP - General Family Medicine 11/14/23 10/30/24 Luli Correa NP [address] [address] PCP - General Family Medicine 10/31/24 Gold Murphy MD [address] DIV IM PULMONARY AND CCM, [address] [address] Referring Physician Pulmonary Disease 11/14/23 Clarence Joseph MD [address] [facility] [address] DIV IM PULMONARY AND CCM, [address] [address] Consulting Physician Cardiology 11/14/23 [facility] Gynecology 10/31/24 documented as of this encounter
--- OUTSIDE RECORDS SUMMARY | 2025-03-14 13:05 | XMS_ITS | Encounter Summary ---
Author Organization [facility] Address [address] [place] [address] Phone Care Team Providers Care Twill Cutter Name Role Phone Radha Clark Primary Care Provider Gold Murphy MD Unavailable [phone] Clarence Joseph MD Unavailable [phone] Sunshine Zamora MD Primary Care Provider Luli Correa NP Primary Care Provider [phone] Encounter Details Date Type Department Care Team (Latest Contact Info) Description 06/30/2023 Orders Only [facility] Tete Beyer, BIANCA [address] [facility] [address] [place] [address] Social History Tobacco Use Types Packs/Day Years Used Date Smoking Tobacco: Never Assessed Comments Unknown Sex and Gender Information Value Date Recorded Sex Assigned at Not on file 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 Gender Identity Not on file Sexual Orientation Not on file documented as of this encounter Plan of Treatment Not on file documented as of this encounter Procedures Procedure Name Priority Date/Time Associated Diagnosis Comments CARDIOLOGY DOCUMENT SCAN 06/30/2023 documented in this encounter Results * Cardiology Document Scan (06/30/2023) Anatomical Region Laterality Modality Other us Tete Beyer RN [facility] P ROCEDURES Final Result documented in this encounter Visit Diagnoses Not on filedocumented in this encounter Care Teams Twill Cutter Relationship Specialty [place] [address] [address] [facility] [address] [place] [address] PCP - General Physician Strategy Execution Consultant 08/02/23 11/13/23 Sunshine Zamora MD [address] DIV IM PULMONARY AND CCM, [facility] [address] [place] [address] PCP - General Family Medicine 11/14/23 10/30/24 Luli Correa NP [address] [facility] [address] [place] [address] PCP - General Family Medicine 10/31/24 Gold Murphy MD [address] DIV IM PULMONARY AND CCM, [address] [address] Referring Physician Pulmonary Disease 11/14/23 Clarence Joseph MD [address] DIV IM PULMONARY AND CCM, [facility] [address] [place] [address] Consulting Physician Cardiology 11/14/23 [facility] Gynecology 10/31/24 documented as of this encounter
[2025-03-14 13:10] VITALS: BP 159/91; PULSE 85; RESP 18; TEMP 36.7; O2SAT 100
--- OUTSIDE RECORDS SUMMARY | 2025-03-14 14:13 | XMS_ITS | Referral Summary ---
Author Organization [facility] Address [address] [place] [address] Care Team Providers Care Veterinary Laboratory Diagnostician Name Role Phone Gold Murphy MD Unavailable [phone] Clarence Joseph MD Unavailable [phone] Luli Correa NP Primary Care Provider [phone] Encounters Date Type Department Care Team Description 03/14/2025 12:45 PM CDT Office Visit [facility] at [address] [address] Eileen Moreno NP Fall, initial encounter (Primary Dx); Pressure in head; Nonintractable headache, unspecified chronicity pattern, unspecified headache type 03/14/2025 Nurse Triage [facility] Primary Care at [address] [address] Luli Correa NP from Last [...] Patient was advised of supportive care with lftg-viu-quybfza cough and cold medications. We have advised use of eayh-wbq-equenaq Tylenol for pain/fever. 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 ASSISTANT THERAPY AIDE Gender Identity Not on file Sexual Orientation [...] low risk patient COLONOSCOPY 07/15/2024 8:14 AM ASSISTANT THERAPY AIDE HM MAMMOGRAPHY Routine 06/16/2023 3:42 PM CDT [...] GENERAL ORDER CHRIS Final Result [facility] JEB [address] [address] Department [place] [address] * Colonoscopy (07/15/2024 8:14 AM ASSISTANT THERAPY AIDE) Anatomical Region Laterality Modality Other Narrative Procedure Note Timothy Cai MD - 07/15/2024 8:14 AM CST [facility] GI ENDOSCOPY Patient Name: Becky Cruz Procedure Date: 07/15/2024 8:14 AM Date of : 1955 Admit Type: Outpatient Age: 69 Gender: Female Attending MD: Timothy Cai M.D. Room: [facility] ENDOSCOPY ROOM 06 Note Status: Finalized Procedure: [...] The scope was passed under direct vision.The [id number]-[id number] colonoscope was introduced through theanus and advanced [...] On: 07/15/2024 8:14 AM Recognized by the [place] Society for Gastrointestinal Endoscopy for promoting quality in endoscopy Timothy Cai MD ENDOSCOPY PROCEDURES Final Resul t * HM MAMMOGRAPHY (06/16/2023 3:42 PM CDT) Historical Provider HEALTH MAINTENANCE Final Result * DEXA SCAN (03/03/2022 3:44 PM CDT) us Historical Provider HEALTH MAINTENANCE Final Result from Last 3 Months or Most Recently Relevant to Health Maintenance Insurance MEDICARE [facility] MEDICARE [facility] Care Teams Veterinary Laboratory Diagnostician Relationship Specialty Start Date End Date Luli Correa NP [address] [facility] [address] [place] [address] PCP - General Family Medicine 10/31/24 Gold Murphy MD [address] DIV IM PULMONARY AND CCM, [address] [address] Referring Physician Pulmonary Disease 11/14/23 Clarence Joseph MD [address] DIV IM PULMONARY AND CCM, [address] [address] Consulting Physician Cardiology 11/14/23 [facility] Gynecology 10/31/24
--- OUTSIDE RECORDS SUMMARY | 2025-03-14 14:13 | XMS_ITS | Clinical Summary ---
Author Organization [facility] Address [address] [place] [address] Care Team Providers Care Fruit Thinner Machine Operator Name Role Phone Unavailable Primary Care Provider Unavailabl e Source Comments [facility],non-owned Affiliates and Associated Physician Practices is amultiple site organization consisting of ambulatory clinics and hospital sitesin [place], [place], [place] and [place]. This disclosure is being madepursuant to the Care Everywhere program and may not contain all information available regarding this patient. Last updated 18.[facility] Allergies No known active allergies Medications * [...] on file Legal Sex Female 9:56 AM OPERATIONS ASSOCIATE Gender Identity Not on file Sexual Orientation Not on file Last Filed Vital Signs Vital Sign Reading Time Taken Comments Blood Pressure 160/100 08/03/2021 11:44 AM OPERATIONS ASSOCIATE Pulse 72 08/03/2021 11:44 AM OPERATIONS ASSOCIATE Temperature - - Respiratory Rate - - Oxygen Saturation - - Inhaled Oxygen Concentration - - Weight 74.8 kg (165 lb) 08/03/2021 7:39 AM OPERATIONS ASSOCIATE Height 161.3 cm (5' 3.5) 08/03/2021 7:39 AM OPERATIONS ASSOCIATE Body Mass Index 28.77 08/03/2021 7:39 AM OPERATIONS ASSOCIATE Plan of Treatment Health Maintenance Due Date [...]
--- OUTSIDE RECORDS SUMMARY | 2025-03-14 14:13 | XMS_ITS | Clinical Summary ---
Author Organization [facility] Address [facility] access hospital[address] [place] [address] Care Team Providers Care Bilingual Teacher Name Role Phone Radha Clark Primary Care Provider [phone] Allergies No known active allergies Medications aspirin [...] on file Legal Sex Female 10:13 AM CHIN STRAP MAKER Gender Identity Not on file Sexual Orientation Not on file Last Filed Vital Signs Vital Sign Reading Time Taken Comments Blood Pressure 128/80 07/20/2023 11:08 AM CHIN STRAP MAKER Pulse 79 07/20/2023 11:08 AM CHIN STRAP MAKER Temperature 36.8 C (98.2 F) 06/19/2023 7:46 AM CHIN STRAP MAKER Respiratory Rate 14 06/19/2023 7:46 AM CHIN STRAP MAKER Oxygen Saturation 98% 07/20/2023 11:08 AM CHIN STRAP MAKER Inhaled Oxygen Concentration - - Weight 73 kg (161 lb) 07/20/2023 11:08 AM CHIN STRAP MAKER Height 165.1 cm (5' 5) 07/20/2023 11:08 AM CHIN STRAP MAKER Body Mass Index 26.79 07/20/2023 11:08 AM CHIN STRAP MAKER Plan of Treatment Health Maintenance Due Date Last Done Comments Annual Medicare Wellness Visit 2022 Pneumococcal Vaccine: 50+ Years (2 of 2 - PCV) 05/12/2023 05/12/2022 COVID-19 Vaccine ( season) 2024 07/03/2022, 06/13/2021, 10/22/2020 PHQ-2 (Physician Telida) 08/14/2024 04/06/2023 Mammogram Screening 06/16/2025 06/16/2023, 03/03/2022, [...] COLOGUARD (EXACT SCIENCE) Routine 07/14/2022 9:00 AM CHIN STRAP MAKER Screen for colon cancer BONE DENSITY/DEXA Routine [...] Thompson MD, 06/16/2023 4:05 PM Radha Clark [place] MAMMO Final Result * COLOGUARD (Tamr SCIENCE) (07/14/2022 9:00 AM CHIN STRAP MAKER) COLOGUARD RESULT Negative Negative [employer] (CLIA #:[id number]) Comment: NEGATIVE TEST RESULT. A negative Cologuard [...] Maria Mcconnell al, N Engl J Med 2014;370(14):9925-2037) The normal value (reference range) for this assay is negative. COLOGUARD RE-SCREENING RECOMMENDATION: Periodic colorectal cancer screening is an important part of preventive healthcare for asymptomatic individuals at average risk for colorectal cancer. Following a negative Cologuard result, the [place] Cancer Society and U.S. [facility]-Society Task Force screening guidelines recommend a Cologuard re-screening interval of 3 years. References: [place] [employer] Society Guideline for Colorectal Cancer Screening: https://www.cancer.org/cancer/xaswy-hlzvcv-aiaryq/xfwpxogty-hadvavnrz-jhojzje/ac s-rec ommendations.html.; Sundeep DK, Maddy CR, Benny ClarkeK, Colorectal Cancer Screening: Recommendations for Physicians and Patients from the U.S. Multi-Society Task Force on Colorectal Cancer Screening , Am J Gastroenterology 2017; 112:8836-3692. TEST DESCRIPTION: Composite algorithmic analysis of stool [...] Maria Mcconnell al, N Engl J Med 2014;370(14):6344-8556.) Cologuard may produce a false negative or false positive result (no colorectal cancer or precancerous polyp present at colonoscopy follow up). A negative Cologuard test result does not guarantee the absence of CRC or advanced adenoma (pre-cancer). The current Cologuard screening interval is every 3 years. ([place] Cancer Society and U.S. Multi-Society Task Force). Cologuard performance data in a 10,000 patient pivotal study using colonoscopy as the reference method can be accessed at the following location: www.[employer]/results. Additional description of the Cologuard test process, warnings and precautions can be found at www.cologSendside Networksrd.com. STOOL STOOL SPECIMEN / Unknown 07/14/2022 9:00 AM CHIN STRAP MAKER 07/15/2022 1:03 PM CHIN STRAP MAKER us Radha CHÁVEZ BODY FLUIDS AND STOOLS ORDER CHRIS Final Result [facility] ([employer]) [address] [place] [address], [employer] (CLIA #:[id number]) [address] [place] [address] * BONE DENSITY/DEXA (03/03/2022 12:35 PM CDT) [...] Recently Relevant to Health Maintenance Insurance MEDICARE [facility] Care Teams Bilingual Teacher Relationship Specialty [place] [address] [facility] [place] [address] PCP - General PHYSICIAN MATERIALS HANDLER 10/02/19
--- OUTSIDE RECORDS SUMMARY | 2025-03-14 14:13 | XMS_ITS | Encounter Summary ---
Author Organization [facility] Address [address] [place] [address] Care Team Providers Care Teacher Learning Disabled Name Role Phone Radha Clark Primary Care Provider [phone] Encounter Details Date Type Department Care Team (Late st Contact Info) Description 10/09/2019 [employer] Message [facility] Family & Internal Medicine [facility] [address] [place] [address] [facility] [employer], [facility] Provider Bone Density Results Social History Tobacco [...] on file Legal Sex Female 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
--- OUTSIDE RECORDS SUMMARY | 2025-03-14 14:13 | XMS_ITS | Continuity of Care Document ---
Author Organization [facility] Address [address] [place] [address] Exec utive [facility] [address] [place] [address] Phone Care Team Providers Care Embedded Firmware Developer Name Role Phone Melissa Hemran Unavailable Unavailable Advance Directives Directive Yes / No Effective Date File Name No Information Encounters Encounter Description Practice Location Reason(s) For Visit Diagnoses Date Provider Providers Copied on Encounter [facility], [id number] [place] [address] [address], [place], [place], [id number], [place] tel:[phone] [facility] No Information [address]. [address] , [address], [place], [address], [place]. tel:[phone] Family History Family Member Type Diagnosis Age [...]
--- OUTSIDE RECORDS SUMMARY | 2025-03-14 14:13 | XMS_ITS | Encounter Summary ---
Author Organization [facility] Address [address] [place] [address] Care Team Providers Care Strawhat Sizer Name Role Phone Radha Clark Primary Care Provider [phone] Encounter Details Date Type Department Care Team (Late st Contact Info) Description 05/31/2023 [employer] Message [facility] Family & Internal Medicine [facility] [address] [place] [address] [facility] Provider Referral Department number Social History [...] on file Legal Sex Female 10:13 AM LEGAL PROJECT MANAGER Gender Identity Not on file Sexual Orientation Not on file documented as of this encounter Plan of Treatment Not on file documented as of this encounter Visit Diagnoses Not on filedocumented in this encounter Additional Health Concerns Assessment Noted Time PHQ-9 Depression Total Score: 0 02/02/20 21 1:54 PM CDT documented as of this encounter Care Teams Strawhat Sizer Relationship Specialty [place] [address] [place] [address] PCP - General PHYSICIAN INFORMATION TECHNOLOGY ACCOUNT MANAGER 10/02/19 documented as of this encounter
--- OUTSIDE RECORDS SUMMARY | 2025-03-14 14:13 | XMS_ITS | Clinical Summary ---
Author Organization [facility] Address [address] [place] [address] Care Team Providers Care Drainage Inspector Name Role Phone Gold Murphy MD Unavailable Clarence Joseph MD Unavailable [phone] Luli Correa NP Primary Care Provider [phone] Allergies No known active allergies Medications amLODIPine [...] Patient was advised of supportive care with aknf-cta-tggfdhw cough and cold medications. We have advised use of uttw-qym-tixqjnw Tylenol for pain/fever. 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 GI ENDOSCOPY Patient Name: Becky Cruz Procedure Date: 07/15/2024 8:14 AM Date of : 1955 Admit Type: Outpatient Age: 69 Gender: Female Attending MD: Timothy Cai M.D. Room: [facility] ENDOSCOPY ROOM 06 Note [...] The scope was passed under direct vision.The [id number]-[id number] colonoscope was introduced through theanus and advanced [...] On: 07/15/2024 8:14 AM Recognized by the [place] Society for Gastrointestinal Endoscopy for promoting quality in endoscopy Timothy Cai MD ENDOSCOPY PROCEDURES Final Resul t * HM MAMMOGRAPHY (06/16/2023 3:42 PM CDT) Historical Provider HEALTH MAINTENANCE Final Result * DEXA SCAN (03/03/2022 3:44 PM CDT) Historical Provider HEALTH MAINTENANCE Final Result from Last 3 Months or Most Recently Relevant to Health Maintenance [place] [address] MEDICARE [facility] MEDICARE [facility] Care Teams Drainage Inspector Relationship Specialty Start Date End Date Luli Correa NP [address] [facility] [address] [place] [address] PCP - General Family Medicine 10/31/24 Gold Murphy MD [address] [facility] [address] DIV IM PULMONARY AND CCM, [address] [address] Referring Physician Pulmonary Disease 11/14/23 Clarence Joseph MD [address] [facility] [address] DIV IM PULMONARY AND CCM, [address] [address] Consulting Physician Cardiology 11/14/23 [facility] Gynecology 10/31/24
--- OUTSIDE RECORDS SUMMARY | 2025-03-14 14:13 | XMS_ITS | Encounter Summary ---
Author Organization [facility] Healthcare Address [address] [place] [address] Care Team Providers Care Terminal System Operator Name Role Phone Gold Murphy MD Unavailable [phone] Clarence Joseph MD Unavailable [phone] Sunshine Zamora MD Primary Care Provider Luli Correa NP Primary Care Provider Encounter Details Date Type Department Care Team (Late st Contact Info) Description 05/27/2024 Telephone [facility] Primary Care at [address] [address] Sunshine Zamora MD [address] [place] [address] Social History Tobacco Use Types Packs/Day Years Used Date Smoking Tobacco: Never Smokeless Tobacco: Never PHQ-2 Answer Date Recorded PHQ-2 Total Score (If total score is 3 or more points, staff should administer the PHQ-9) 0 11/14/2023 Comments No Sex and Gender Information Value Date Recorded Sex Assigned at Not on file Legal Sex Female 1:43 AM AUXILIARY EQUIPMENT OPERATOR Gender Identity Not on file Sexual Orientation Not on file documented as of this encounter Plan of Treatment Not on file documented as of this encounter Visit Diagnoses Not on filedocumented in this encounter Care Teams Terminal System Operator Relationship Specialty Start Date End Date Sunshine Zamora MD [address] [facility] [address] DIV IM PULMONARY AND CCM, [address] [place] [address] PCP - General Family Medicine 11/14/23 10/30/24 Luli Correa NP [address] [address] PCP - General Family Medicine 10/31/24 Gold Murphy MD [address] DIV IM PULMONARY AND CCM, [address] [address] Referring Physician Pulmonary Disease 11/14/23 Clarence Joseph MD [address] [facility] [address] DIV IM PULMONARY AND CCM, [address] [address] Consulting Physician Cardiology 11/14/23 [facility] Gynecology 10/31/24 documented as of this encounter
--- OUTSIDE RECORDS SUMMARY | 2025-03-14 14:13 | XMS_ITS | Encounter Summary ---
Author Organization [facility] Address [address] [place] [address] Phone Care Team Providers Care Agricultural Produce Sorter Name Role Phone Radha Clark Primary Care Provider Gold Murphy MD Unavailable Clarence Joseph MD Unavailable [phone] Sunshine Zamora MD Primary Care Provider Luli Correa NP Primary Care Provider [phone] Encounter Details Date Type Department Care Team (Latest Contact Info) Description 04/06/2023 Orders Only [facility] Tete Beyer, RN [address] [facility] [address] [place], [place] [id number] Social History Tobacco Use Types Packs/Day Years Used Date Smoking Tobacco: Never Assessed Comments Unknown Sex and Gender Information Value Date Recorded Sex Assigned at Not on file 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 Gender Identity Not on file Sexual Orientation [...] on filedocumented in this encounter Care Teams Agricultural Produce Sorter Relationship Specialty [place] [address] [address] [facility] [address] [place] [address] PCP - General Physician Nursing Home Physician 08/02/23 11/13/23 Sunshine Zamora MD [address] DIV IM PULMONARY AND CCM, [address] [address] PCP - General Family Medicine 11/14/23 10/30/24 Luli Correa NP [address] [facility] [address] [place] [address] PCP - General Family Medicine 10/31/24 Gold Murphy MD [address] DIV IM PULMONARY AND CCM, [address] [address] Referring Physician Pulmonary Disease 11/14/23 Clarence Joseph MD [address] DIV IM PULMONARY AND CCM, [address] [address] Consulting Physician Cardiology 11/14/23 [facility] Gynecology 10/31/24 documented as of this encounter
--- OUTSIDE RECORDS SUMMARY | 2025-03-14 14:13 | XMS_ITS | Encounter Summary ---
Author Organization [facility] Healthcare Address [address] [place] [address] Care Team Providers Care Well Drill Operator Helper Cable Tool Name Role Phone Gold Murphy MD Unavailable [phone] Clarence Joseph MD Unavailable [phone] Luli Correa NP Primary Care Provider [phone] Reason for Visit * Reason Onset Date Comments Headache 03/14/2025 Encounter Details Date Type Department Care Team (Late st Contact Info) Description 03/14/[address] 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 No appts available to schedule until this evening. Home care reviewed. Advised pt to call back if symptoms worsen or with any other concerns/questions. Pt verbalized understanding. Disposition See Today in Office Reason for Disposition Patient wants to be seen Protocols Used [id number] * Telephone Encounter - Candice Castle RN [...] on filedocumented in this encounter Care Teams Well Drill Operator Helper Cable Tool Relationship Specialty Start Date End Date Luli Correa NP [address] [place] [address] PCP - General Family Medicine 10/31/24 Gold Murphy MD [address] [facility] [address] DIV IM PULMONARY AND CCM, [address] [place] [address] Referring Physician Pulmonary Disease 11/14/23 Clarence Joseph MD [address] [facility] [address] DIV IM PULMONARY AND CCM, [address] [address] Consulting Physician Cardiology 11/14/23 [facility] [place] [facility]ne[facility] 10/31/24 documented as of this encounter
--- OUTSIDE RECORDS SUMMARY | 2025-03-14 14:13 | XMS_ITS | Encounter Summary ---
Author Organization [facility] Healthcare Address [address] [place] [address] Care Team Providers Care Province Archivist Name Role Phone Gold Murphy MD Unavailable [phone] Clarence Joseph MD Unavailable [phone] Luli Correa NP Primary Care Provider Reason for Visit * Reason Comments Fall Patient here for c/o fall last . States she has bruise on chest, has had persistent headache but denies hitting head. 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 Gender Identity Not on file Sexual Orientation [...] type documented in this encounter Care Teams Province Archivist Relationship Specialty Start Date End Date Luli Correa NP [address] [facility] [address] [place] [address] PCP - General Family Medicine 10/31/24 Gold Murphy MD [address] DIV IM PULMONARY AND CCM, [address] [place] [address] Referring Physician Pulmonary Disease 11/14/23 Clarence Joseph MD [address] DIV IM PULMONARY AND CCM, [address] [place] [address] Consulting Physician Cardiology 11/14/23 [facility] Gynecology 10/31/24 documented as of this encounter
--- OUTSIDE RECORDS SUMMARY | 2025-03-14 14:13 | XMS_ITS | Encounter Summary ---
Author Organization [facility] Address [address] [place] [address] Phone Care Team Providers Care Business Office Manager Name Role Phone Radha Clark Primary Care Provider Gold Murphy MD Unavailable Clarence Joseph MD Unavailable [phone] Sunshine Zamora MD Primary Care Provider Luli Correa NP Primary Care Provider [phone] Encounter Details Date Type Department Care Team (Latest Contact Info) Description 06/30/2023 Orders Only [facility] Tete Beyer, BIANCA [address] [facility] [address] [place] [address] Social History Tobacco Use Types Packs/Day Years Used Date Smoking Tobacco: Never Assessed Comments Unknown Sex and Gender Information Value Date Recorded Sex Assigned at Not on file 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 Gender Identity Not on file Sexual [...] on filedocumented in this encounter Care Teams Business Office Manager Relationship Specialty [place] [address] [address] [facility] [address] [place] [address] PCP - General Physician Direct Mail Clerk 08/02/23 11/13/23 Sunshine Zamora MD [address] DIV IM PULMONARY AND CCM, [facility] [address] [place] [address] PCP - General Family Medicine 11/14/23 10/30/24 Luli Correa NP [address] [facility] [address] [place] [address] PCP - General Family Medicine 10/31/24 Gold Murphy MD [address] DIV IM PULMONARY AND CCM, [address] [address] Referring Physician Pulmonary Disease 11/14/23 Clarence Joseph MD [address] DIV IM PULMONARY AND CCM, [facility] [address] [place] [address] Consulting Physician Cardiology 11/14/23 [facility] Gynecology 10/31/24 documented as of this encounter
--- NOTE | 2025-03-14 14:41 | ED.GENADULT ---
HPI - General Adult General Chief complaint: Fall Stated complaint: fall Time Seen by Provider: 03/14/25 13:35 History of Present Illness HPI narrative: 69-year-old female presents to the emergency department for evaluation for chest wall pain after having a ground level fall. Patient reports she fell off of her patio and into a armijo from a height of approximately 3 ft. Patient did strike her face and the but she did have a bruise to her left chest wall. Patient was concerned because she has had increase headache since the fall. Patient is not take any blood thinners. Patient states she is not prone to having headaches. Related Data Allergies Allergy/AdvReac Type Severity Reaction Status Date / Time No Known Allergies Allergy Unknown Verified 05/02/03 21:24 Review of Systems Review of Systems: All systems reviewed & are unremarkable except as noted in HPI and below Exam Narrative: APPEARANCE: Well appearing, no pain, no distress, well-nourished. HEAD: normocephalic, atraumatic. EYES: PERRLA/EOMI, conjunctivae clear. NOSE: Normal no drainage EARS:TMS clear with good light reflex. THROAT: Pharynx clear, no exudate. NECK: Supple. No adenopathy, no masses. RESPIRATORY: Airway patent, respirations nonlabored. Clear to auscultation bilaterally, no rales, rhonchi, wheezing. CARDIOVASCULAR: Regular rate and rhythm without murmurs rubs or gallops. ABDOMINAL: Soft, nontender, nondistended, normal bowel sounds MUSCULOSKELETAL: Moves all extremities. Strength/ROM intact, No edema, No calf tenderness. NEURO: Alert. Cranial nerves II through XII intact. Good gait. Good coordination SKIN: Warm, dry. Normal Color PSYCHIATRIC: Normal affect/mood. Course Vital Signs Vital signs: Vital Signs Temperature 97.5 F L 03/14/25 13:03 Pulse Rate 80 03/14/25 13:03 Respiratory Rate 16 03/14/25 13:03 Blood Pressure 147/89 H 03/14/25 13:03 Pulse Oximetry 99 03/14/25 13:03 Temperature 98.0 F 03/14/25 13:10 Pulse Rate 85 03/14/25 13:10 Respiratory Rate 18 03/14/25 13:10 Blood Pressure 159/91 H 03/14/25 13:10 Pulse Oximetry 100 03/14/25 13:10 Oxygen Delivery Room Air 03/14/25 13:10 Medical Decision Making MDM Narrative Medical decision making narrative: 69-year-old female presents emergency department for evaluation for headache after having a ground level fall. Head cervical spine CT were negative for acute abnormality. Patient's symptoms may be secondary to muscular strain secondary to the fall. Patient was advised to take Tylenol and ibuprofen for pain control and provided Flexeril for muscle spasm Differential Diagnosis Differential Diagnosis: Subdural hematoma, subarachnoid hemorrhage, cervical spine fracture Vital Signs Vital Signs: Vital Signs Temperature 97.5 F L 03/14/25 13:03 Pulse Rate 80 03/14/25 13:03 Respiratory Rate 16 03/14/25 13:03 Blood Pressure 147/89 H 03/14/25 13:03 Pulse Oximetry 99 03/14/25 13:03 Temperature 98.0 F 03/14/25 13:10 Pulse Rate 85 03/14/25 13:10 Respiratory Rate 18 03/14/25 13:10 Blood Pressure 159/91 H 03/14/25 13:10 Pulse Oximetry 100 03/14/25 13:10 Oxygen Delivery Room Air 03/14/25 13:10 Imaging Data Radiologist's impression: Impressions Head CT 03/14/25 14:59 IMPRESSION: No acute intracranial process. Cervical Spine CT 03/14/25 15:13 IMPRESSION: No acute fracture or traumatic malalignment in the cervical spine. Discharge Plan Discharge Clinical Impression: Head injury, Headache Patient Disposition: Home Condition: Stable Instructions: Antibiotic Form, Acute Headache (DC) Additional Instructions: Tylenol and ibuprofen for pain control. Flexeril for muscle spasm. Have close follow-up with your primary care physician. If you have any worsening symptoms then please call or return to the emergency department. Patient Language: Uzbek Prescriptions: New cyclobenzaprine 10 mg tablet 10 mg PO BID PRN (Reason: muscle spasm) Qty: 14 0RF Follow-up/Referrals: Nilsa,Giovanni Rivera MD [Primary Care Provider] -
[2025-03-14] MEDS: CYCLOBENZAPRINE HCL 10 MG TABLET PO (15:48)
[2025-03-14] MEDS: KETOROLAC 30 MG/ML VIAL (*BKC) IM (15:49)
== END 2025-03-14 16:03 | disposition home or self-care (01) ==
PROVIDERS: Emergency Provider Emergency Medicine; PCP Family Medicine
DX: S09.90XA Unspecified injury of head, initial encounter (principal); R51.9 Headache, unspecified; W13.8XXA Fall from, out of or through other building or structure, initial encounter
CPT/HCPCS: 70450; 72125; 96372; 99284; A9270; J1885